=== PATIENT | male | born 1980 | race Caucasian/White ===

== ENCOUNTER 2023-10-26 10:45 | Observation (INO) | payer MEDICAID ==
[~2023-10-26] VITALS: Ht 177.8 cm; Wt 119.0 kg
[2023-10-26] MEDS ORDERED: HYDROmorphone 0.5 MG/0.5 ML SYRINGE IV PRN ×2 (11:00→17:00)
[2023-10-26] MEDS ORDERED: Iohexol 300 - 100 ML VIAL IV ONE (11:27)
[2023-10-26] MEDS ORDERED: NS 100 ML IV.SOLN. IY SCH (11:29)
[2023-10-26 12:17] LABS: BASO % 0.3 % (0.0-2.0); EOS # 0.1 K/mm3 (0.0-0.7); EOS % 0.9 % (0.0-4.0); GRAN # 4.8 K/mm3 (1.4-6.5); GRAN % 74.8 % (42.2-75.2); HEMATOCRIT 45.2 % (42.0-52.0); HEMOGLOBIN 15.7 g/dl (13.5-18.0); LYMPH # 1.1 K/mm3 (1.2-3.4); LYMPH % 16.7 % (20.0-51.0); MEAN CELL VOLUME 87 fl (80.0-100.0); MEAN CORPUSCULAR HEMOGLOBIN 30 pg (27-31); MEAN CORPUSCULAR HGB CONC 35 g/dl (33.0-37.0); MEAN PLATELET VOLUME 10.7 fl (7.4-10.4); MONO # 0.4 K/mm3 (0.1-0.6); MONO % 6.2 % (1.7-9.3); PLATELET COUNT 181 K/mm3 (130-400); RED BLOOD COUNT 5.22 M/mm3 (4.20-5.60); REDCELL DISTRIBUTION WIDTH-CV 12.4 % (11.5-14.5)
[2023-10-26 12:24] LABS: PROTHROMBIN TIME 10.5 SECONDS (9.7-12.8)
[2023-10-26 12:32] LABS: ALBUMIN 4.1 g/dL (3.5-5.0); BILIRUBIN,TOTAL 0.4 mg/dL (0.2-1.2); CALCIUM 9.5 mg/dL (8.4-10.2); CREATININE, serum 0.98 mg/dL (0.72-1.25); POTASSIUM 3.8 mEq/L (3.5-4.5); TOTAL PROTEIN 6.8 g/dl (6.2-8.1)
[2023-10-26] MEDS ORDERED: LOPRESSOR 225 MG/TAB PO (14:49)
[2023-10-26] MEDS ORDERED: ASPIRIN E.C. 8181 MG PO (14:50)
[2023-10-26] MEDS ORDERED: HYDROmorphone 0.5 MG/0.5 ML SYRINGE IV ONE (15:00)
[2023-10-26 16:45] VITALS: BP 130/86; PULSE 82; TEMP 98.2
--- NOTE | 2023-10-26 16:45 | NUR ---
PATIENT ARRIVED FROM ER AWAKE AND ALERT, VSS. PATIENT ORIENTED TO ROOM AND PLAN OF CARE. CALL LIGHT WITHIN REACH. PATIENTS AT BEDSIDE. MD AT BEDSIDE.
[2023-10-26] MEDS ORDERED: Acetaminophen 500 MG TAB PO SCH (17:00)
[2023-10-26] MEDS ORDERED: oxyCODONE 5 MG TAB PO PRN ×2 (17:00)
[2023-10-26] MEDS ORDERED: Ondansetron 4 MG/2 ML VIAL IV PRN (17:00)
[2023-10-26 17:30] VITALS: BP_SYST 130
[2023-10-26] MEDS ORDERED: NORVASC 10MG10 MG PO (17:52)
[2023-10-26] MEDS ORDERED: LIPITOR 80MG80 MG PO (17:52)
--- NOTE | 2023-10-26 18:00 | NUR ---
PATIENT VOICES PAIN CONTROL AT THIS TIME. PATIETN DENIES ANY NEEDS OR COMPLAINTS. ALL REQUESTED ITEMS AT BEDISDE. MULTIPLE FAMILY MEMBERS AT BEDSIDE. CALL LIGHT WITHIN REACH.
--- NOTE | 2023-10-26 19:35 | NUR ---
PT A&O X4 LAYING IN BED. VSS. PT ATTEMPTED TO GET UP TO BSC WITH X2 ASSIST, PT REPORTS IT HURTS TO BAD TO MOVE. PT REPORTS MOST OF HIS PAIN IS IN HIS RT WRIST. GAVE PRN DILAUDID PER MAR. DENIES N/V OR OTHER NEEDS. CALL LIGHT IN REACH
[2023-10-26 19:49] VITALS: BP 121/75; PULSE 76; TEMP 98.6
[2023-10-26] MEDS ORDERED: Nicotine 14 MG DAILY PATCH TD SCH (20:00)
[2023-10-26 21:00] VITALS: BP_SYST 121
[2023-10-26] MEDS ORDERED: Aspirin 325 MG TAB PO SCH (21:00)
[2023-10-26] MEDS ORDERED: Sennosides/Docusate 8.6-50 MG TAB PO SCH (21:00)
[2023-10-27] VITALS (12 sets, daily range): BP systolic 114–133; BP diastolic 65–87; PULSE 60–73; TEMP 97.9–98.3
[2023-10-27 06:06] LABS: BASO # 0.1 K/mm3 (0.0-0.2); BASO % 0.7 % (0.0-2.0); EOS # 0.2 K/mm3 (0.0-0.7); GRAN # 5.3 K/mm3 (1.4-6.5); GRAN % 68.8 % (42.2-75.2); HEMATOCRIT 42.9 % (42.0-52.0); HEMOGLOBIN 15.1 g/dl (13.5-18.0); LYMPH # 1.5 K/mm3 (1.2-3.4); LYMPH % 19.2 % (20.0-51.0); MEAN CELL VOLUME 87 fl (80.0-100.0); MEAN CORPUSCULAR HEMOGLOBIN 31 pg (27-31); MEAN CORPUSCULAR HGB CONC 35 g/dl (33.0-37.0); MEAN PLATELET VOLUME 10.7 fl (7.4-10.4); MONO # 0.6 K/mm3 (0.1-0.6); PLATELET COUNT 162 K/mm3 (130-400); RED BLOOD COUNT 4.92 M/mm3 (4.20-5.60); REDCELL DISTRIBUTION WIDTH-CV 12.6 % (11.5-14.5)
--- NOTE | 2023-10-27 06:10 | NUR ---
GAVE PRN OXYCODONE AT 0515 FOR 7/10 PAIN TO ENTIRE RT SIDE. PT NOW REPORTING PAIN IS IMPROVING. CALL LIGHT IN REACH
[2023-10-27 06:22] LABS: CALCIUM 8.9 mg/dL (8.4-10.2); CREATININE, serum 0.95 mg/dL (0.72-1.25); POTASSIUM 3.8 mEq/L (3.5-4.5)
--- NOTE | 2023-10-27 06:30 | NUR ---
Pt sleeping in bed. Call light in reach.
--- NOTE | 2023-10-27 08:40 | NUR ---
Pt sitting up in bed. at bedside. A&Ox4. VSS. S1S2. Clear lungs on RA. ABD round, soft, non-tender with audible bowel sounds. Palpable pulses in all extremities with 5/5 strength in Left extremities, 4/5 strength in URE, 3/5 in LRE. Pt's R wrist is swollen - placed ice pack on it. Pt states pain 6/10 in R pelvis and 3/10 in wrist. Denies need for pain meds at this time. Per Pt "does not want to be groggy talking with ." Told Pt to ring when he would like pain meds. IV in L wrist is patent, no issues, INT. Call light in reach.
--- NOTE | 2023-10-27 08:55 | NUR ---
AQUILINO met with patient and to complete initial assessment for discharge planning. Patient and live in [place] with 4 children living with them, as well as two grandchildren. Patient sees Dr. Jessi Pittman as his PCP and uses [facility]. Patient denies using any DME. Patient denies having a DPOA and declines completing one at this time. Patient is covered by [place] Medicaid and hopes to file this hospitalization under worker's comp due to injury occurring while working. Patient plans to return home at discharge. Discharge plan: Home
[2023-10-27] MEDS ORDERED: Polyethylene Glycol 3350 17 GM PDS PO SCH (09:00)
[2023-10-27] MEDS ORDERED: Metoprolol Tartrate 25 MG TAB PO SCH (09:00)
--- NOTE | 2023-10-27 10:41 | NUR ---
Initial visit: Patient states he is "not great" but says he is getting along as well as he can. His is present offering love and support. Harvest Worker Fruit wished Mareclino well and will keep him in her prayers.
--- NOTE | 2023-10-27 20:28 | NUR ---
PT A&O X4 LAYING IN BED. VSS. PT RATING PAIN TO RT SIDE 6.5, GAVE PRN OXYCODONE PER JUL. RT HAND SWOLLEN, ACEWRAP IN PLACE. PT DENYING OTHER NEEDS. CALL LIGHT IN REACH
[2023-10-28] VITALS (8 sets, daily range): BP systolic 118–131; BP diastolic 80–83; PULSE 64–66; TEMP 97.6–98
[2023-10-28 08:23] LABS: CALCIUM 9.1 mg/dL (8.4-10.2); CREATININE, serum 0.98 mg/dL (0.72-1.25); POTASSIUM 4.1 mEq/L (3.5-4.5)
--- NOTE | 2023-10-28 08:38 | NUR ---
PT SITTING ON EDGE OF BED. PT REPORTS PAIN 4/10 LOCATED IN RIGHT WRIST, DENIES PAIN MEDICATIONS AT THIS TIME. SHIFT ASSESSMENT COMPLETED AT THIS TIME. CALL LIGHT WITHIN REACH. DISCUSSED PLAN FOR DISCHARGE. PT'S AT BEDSIDE, QUESTIONS ANSWERED.
[2023-10-28] MEDS ORDERED: ASPIRIN 32325 MG/TAB PO ×2 (11:05→15:26)
--- NOTE | 2023-10-28 11:07 | NUR ---
Radiology cancelled xray order this morning. Notified them that this was a new order placed this am to be done today.
[2023-10-28 11:18] LABS: BASO % 0.5 % (0.0-2.0); EOS # 0.2 K/mm3 (0.0-0.7); EOS % 3.5 % (0.0-4.0); GRAN % 68.6 % (42.2-75.2); HEMATOCRIT 44.7 % (42.0-52.0); HEMOGLOBIN 15.7 g/dl (13.5-18.0); LYMPH # 1.1 K/mm3 (1.2-3.4); LYMPH % 19.3 % (20.0-51.0); MEAN CELL VOLUME 87 fl (80.0-100.0); MEAN CORPUSCULAR HEMOGLOBIN 31 pg (27-31); MEAN CORPUSCULAR HGB CONC 35 g/dl (33.0-37.0); MEAN PLATELET VOLUME 10.9 fl (7.4-10.4); MONO # 0.5 K/mm3 (0.1-0.6); MONO % 7.8 % (1.7-9.3); PLATELET COUNT 170 K/mm3 (130-400); RED BLOOD COUNT 5.12 M/mm3 (4.20-5.60); REDCELL DISTRIBUTION WIDTH-CV 12.4 % (11.5-14.5)
--- NOTE | 2023-10-28 12:52 | NUR ---
PT TO RADIOLOGY. PT REPORTS 8/10 PAIN AFTER XRAY. STAFF ADMINISTERED PRN PAIN MEDICATION.DR. HUERTAS NOTIFIED OF XRAY BEING DONE. OK WITH DISCHARGE. NOTIFIED HOSPITALIST. PT REQUESTED SHOWER AND IS AT BEDSIDE TO ASSIST. PT REFUSED STAFF TO ASSIST.
[2023-10-28] MEDS ORDERED: TYLENOL 500MG500 MG PO (13:03)
[2023-10-28] MEDS ORDERED: LEADER CLE17 GM/Dose PO (13:03)
[2023-10-28] MEDS ORDERED: ROXICODONE 55 MG/TAB PO (13:05)
--- NOTE | 2023-10-28 13:46 | NUR ---
herbarium worker was informed pt is still waiting on the claim information to bill this hospital stay under worker's comp. AQUILINO met with pt to confirm this. He reports he has a number to call and has been corresponding with them. He requests SW/Financial team to call Lou Aguero [phone] with payroll/worker's comp. Patient reports he would like to discharge today and SW advised this financial issue is a barrier to getting his DME ordered and billed correctly. was agreeable to obtaining other means of equipment if they wanted to leave today. AQUILINO called Abdelrahman, Field Return Repairer to provide the above number to get the worker's comp information taken care of for this stay. She left a voicemail reportedly. SW called and left a vm to the front end software developer and Leonarda with the above number. AQUILINO provided an update to pt. He would like to discharge today and have his DME billed under his Medicaid. AQUILINO advised [facility] can only order one item, the wheelchair, under his Medicaid. Pt was agreeable to this and reports his can obtain a FWW. AQUILINO advised this will be delivered to his room and encouraged him to still attempt to obtain his case claim number. Pt was agreeable to this plan. AQUILINO informed [facility] of the need to order wheelchair with pt's Medicaid as the worker's comp case has not been obtained. They will bring it today. Discharge Plan: home
--- NOTE | 2023-10-28 13:51 | NUR ---
DISCHARGED INSTRUCTIONS REVIEWED WITH PATIENT ANS SPOUSE. HOME WHEELCHAIR DELIVERED TO PT PRIOR TO DISCHARGE. PT ESCORTED OUT AT THIS TIME VIA WHEELCHAIR.
--- NOTE | 2023-10-28 16:08 | NUR ---
painting trades worker receieved call from pt's , Liv reporting worker's comp claim #[id number]. SW provided this to financial aid advisor, Abdelrahman to fulfill obligation.
== END 2023-10-28 13:48 | disposition home or self-care (01) ==
LOC: COL.ER 10:45 → SURG 14:46
PROVIDERS: Physician Assistant; ADMIT Internal Medicine
DX: S32.82XA Multiple fractures of pelvis without disruption of pelvic ring, initial encounter for closed fracture (principal); M25.561 Pain in right knee; M25.531 Pain in right wrist; I10 Essential (primary) hypertension; E78.5 Hyperlipidemia, unspecified; F17.290 Nicotine dependence, other tobacco product, uncomplicated; Y92.000 Kitchen of unspecified non-institutional (private) residence as the place of occurrence of the external cause; W11.XXXA Fall on and from ladder, initial encounter; Z79.899 Other long term (current) drug therapy; Z79.82 Long term (current) use of aspirin
CPT/HCPCS: G0378; J1170; Q9967